=== PATIENT | female | born 1960 | race African-American/Black ===

== ENCOUNTER → 2018-06-22 | Outpatient (CLI) | payer BC ==
[~2018-06-22] MED LIST: AMLODIPINE BESY10 MG PO; ASPIR-TRIN325 MG PO; COLACE100 MG PO; COZAAR 50 MG TA50 M2 PO; EXFORGEHCT; HYDROCHLOROTH12.5 M1 PO; HYDROXYCHLOROQ200 M1 PO; NORCO 5-325 TA1 EACH PO; NORFLEX100 MG PO; NORVASC10 MG PO; PERCOCET 5-3251 EACH PO; POTASSIUM20 PO; PROVERA10 MG PO; REGLAN 10 MG TA10 MG PO; ULTRAM 50MG TAB50 MG PO; ZOFRAN ODT4 MG PO
== END ==
LOC: RAD 14:39
DX: M25.512 Pain in left shoulder (principal)

== ENCOUNTER → 2019-03-26 | Outpatient (CLI) | payer BC | LOC: RAD 13:08 | DX: R07.9 Chest pain, unspecified (principal); R05 Cough; M47.814 Spondylosis without myelopathy or radiculopathy, thoracic region ==

== ENCOUNTER 2020-09-27 23:00 | Emergency (ER) | payer BC ==
[~2020-09-27] VITALS: Ht 167.6 cm; Wt 97.1 kg
[2020-09-27] MEDS ORDERED: NEURONTIN 300M300 M2 PO (23:17)
[2020-09-27] MEDS ORDERED: METFORMIN HCL500 M3 PO (23:17)
[2020-09-27] MEDS ORDERED: NOLVADEX20 MG PO (23:17)
[2020-09-27] MEDS ORDERED: OMEPRAZOLE40 MG PO (23:18)
[2020-09-27] MEDS ORDERED: FLEXERIL PO (23:18)
[2020-09-28] MEDS ORDERED: ZOFRAN ODT4 MG PO (00:12)
[2020-09-28] MEDS ORDERED: MECLIZINE HCL25 MG PO (00:12)
[2020-09-28 00:33] VITALS: BP 136/81
--- NOTE | 2020-09-28 08:29 | EKG ---
[facility] [place] [address] ELECTROCARDIOGRAM REPORT Name: JOEL CHAPPELL Room #: [facility]#: [id number] Admission: 09/27/20 Attend Phys: Discharge: 09/28/20 Date of : 58 Report #: [id number] THIS REPORT FOR: cc: Daily Weir Diane C. DO Lundgren, Craig H. MD [facility] THIS REPORT FOR: //name// [facility] ED Test Date: 2020-09-27 Test Time: 23:56:28 Pat Name: JOEL CHAPPELL Department: Room: Gender: [employer]ing [employer]: VAIBHAV : 1960 Requested By: Tarah Salazar Order Number: [id number] MD: Del Handley Measurements Intervals [place] Rate: 84 P: 59 [place]: 178 QRS: 41 QRSD: 104 T: 42 QT: 451 QTc: 534 Interpretive Statements Sinus rhythm Prolonged QT interval Compared to ECG 01/28/2015 15:56:02 Prolonged QT interval now present T wave abnormality was pronounced Electronically Signed On 09-28-2020 8:29:22 [employer] by Del Handley [email or web address] <ELECTRONICALLY SIGNED> By: Del Handley MD, [facility] 09/28/20 [id number] Del Handley MD, [facility] /EPI
== END 2020-09-28 00:42 | disposition home or self-care (01) ==
LOC: ER 23:00
DX: R42 Dizziness and giddiness (principal); R11.0 Nausea; I10 Essential (primary) hypertension; Z90.89 Acquired absence of other organs; Z79.899 Other long term (current) drug therapy; Z88.5 Allergy status to narcotic agent